=== PATIENT | female | born 1935 | race Caucasian/White ===

== ENCOUNTER 2018-09-23 07:35 | Emergency (ER) | payer MEDICARE, OTHER ==
[2018-09-23 07:54] VITALS: BMI 28.3
--- NOTE | 2018-09-23 09:00 | C.PDOC ---
History Of Present Illness 82 year old female, whose past medical history includes CVA, Dementia and Anxiety, is brought to the ED by ambulance after being referred by her grandson for evaluation of bizarre behavior and anxiety. Patient is complaining of left arm pain, and states that the devil is pulling on her left arm. Patient denies suicidal/homicidal ideation at this time. Additional history limited secondary to patient being a poor historian. Time Seen by Provider: 09/23/18 07:53 Chief Complaint (Nursing): Upper Extremity Problem/Injury History Per: Patient, EMS, Family History/Exam Limitations: other (poor historian ) Onset/Duration Of Symptoms: Hrs Current Symptoms Are (Timing): Still Present Quality: "Pain" Additional History Per: Patient Past Medical History Reviewed: Historical Data, Nursing Documentation, Vital Signs Vital Signs: Last Vital Signs Temp 98 F 09/23/18 07:52 Pulse 83 09/23/18 07:52 Resp 17 09/23/18 07:52 BP 180/83 H 09/23/18 07:52 Pulse Ox 99 09/23/18 07:52 - Medical History PMH: Anxiety, HTN, Hyperlipidemia Surgical History: No Surg Hx Family History: States: Unknown Family Hx - Social History Hx Alcohol Use: No Hx Substance Use: No - Immunization History Hx Tetanus Toxoid Vaccination: (UNKNOWN) Hx Influenza Vaccination: (UNKNOWN) Hx Pneumococcal Vaccination: (UNKNOWN) Review Of Systems Musculoskeletal: Positive for: Arm Pain (left) Psych: Negative for: Suicidal ideation Physical Exam - Physical Exam Appears: Non-toxic, No Acute Distress Skin: Normal Color, Warm, Dry Head: Atraumatic, Normacephalic Eye(s): bilateral: Normal Inspection Neck: Supple Chest: Symmetrical, No Deformity, No Tenderness Cardiovascular: Rhythm Regular, No Murmur Respiratory: Normal Breath Sounds, No Rales, No Rhonchi, No Wheezing Extremity: Normal ROM (left upper extremity (shoulder and arm )), No Tenderness, Capillary Refill (less than 2 seconds ), No Deformity, No Swelling ED Course And Treatment - Laboratory Results Result Diagrams: 09/23/18 09:54 09/23/18 09:54 Lab Interpretation: Abnormal (+ mild elev) ECG: Interpreted By Me ECG Rhythm: Sinus Rhythm ECG Interpretation: Normal Rate From EC O2 Sat by Pulse Oximetry: 99 (on RA) Pulse Ox Interpretation: Normal - Radiology CXR: Interpreted by Me, Read By Radiologist (no active pulmonary disease) CXR Interpretation: Yes: No Acute Disease, Other (poor inspiration) - Other Rad left shoulder XR X-Ray: Read By Radiologist Interpretation: IMPRESSION: No acute displaced fracture or dislocation. Progress Note: Bloodwork, urinalysis, CXR, EKG, Left shoulder XR ordered and reviewed. Klonopin PO and Motrin PO given. Symptoms improved with Klonopin PO Reevaluation Time: 08:58 (re-eval L shoulder benign. h/o RIGHT glenoid fx) Reassessment Condition: Improved Medical Decision Making Medical Decision Making: acute on chronic anxiety no obvious pain ? favoring L shoulder but with normal x-ray and L shoulder exam Dementia/Anxiety? prior stroke baseline per brother who picked up pt. Disposition Doctor Will See Patient In The: Office Counseled Patient/Family Regarding: Studies Performed, Diagnosis - Disposition Referrals: [facility] [Outside] [facility] [Outside] [facility] [Outside] [facility] [Outside] Disposition: HOME/ ROUTINE Disposition Time: 08:59 Condition: GOOD Additional Instructions: continue motrin as needed for shoulder discomfort x-ray normal D or [facility] for anxiety/dementia issues. Instructions: Anxiety, Adult (DC), Dementia (DC), Shoulder Pain (DC) Forms: [employer] (Nepali) - Clinical Impression Clinical Impression: Dementia, Anxiety, Left shoulder pain - Scribe Statement The provider has reviewed the documentation as recorded by the Scribe (Hiral Ceja) Provider Attestation: All medical record entries made by the Scribe were at my direction and personally dictated by me. I have reviewed the chart and agree that the record accurately reflects my personal performance of the history, physical exam, medical decision making, and the department course for this patient. I have also personally directed, reviewed, and agree with the discharge instructions and disposition.
[2018-09-23 10:09] VITALS: RESP 18
[2018-09-23 10:12] LABS: ALB/GLOB RATIO 1.4 (1.0-2.1); ALBUMIN 4.4 g/dL (3.5-5.0); ALT/SGPT 13 U/L (9-52); AST/SGOT 21 U/L (14-36); BASO # 0.1 K/uL (0.0-0.2); BASO % 0.6 % (0.0-2.0); BLOOD UREA NITROGEN 14 mg/dL (7-17); CALCIUM 9.6 mg/dl (8.6-10.4); EOS # 0.1 K/uL (0.0-0.7); EOS % 0.5 % (0.0-4.0); GFR NON-AFRICAN AMERICAN 53; HEMOGLOBIN 14.2 g/dL (11.0-16.0); LYMPH # 1.4 K/uL (1.0-4.3); LYMPH % 11.6 % (20.0-40.0); MEAN CORPUSCULAR HEMOGLOBIN 29.8 pg (27.0-31.0); MEAN CORPUSCULAR HGB CONC 33.7 g/dL (33.0-37.0); MEAN PLATELET VOLUME 7.9 fL (7.2-11.7); MONO # 0.8 K/uL (0.0-0.8); MONO % 6.6 % (0.0-10.0); NEUT # 9.5 K/uL (1.8-7.0); NEUT % 80.7 % (50.0-75.0); NRBC % 0.1 % (0.0-2.0); RBC 4.75 Mil/uL (3.80-5.20); RED CELL DISTRIBUTION WIDTH 14.3 % (11.5-14.5); WHITE BLOOD COUNT 11.8 K/uL (4.8-10.8)
[2018-09-23 10:16] LABS: MEAN CELL VOLUME 88.6 fL (81.0-99.0)
--- NOTE | 2018-09-23 10:25 | RAD ---
Date of service: 09/23/2018 PROCEDURE: CHEST RADIOGRAPH, 1 VIEW HISTORY: SOB COMPARISON: None available. FINDINGS: LUNGS: The lungs are well inflated and clear. There is subsegmental atelectasis in the lower lobes. PLEURA: No pneumothorax or pleural effusion. CARDIOVASCULAR: The heart is normal in size. No aortic atherosclerotic calcifications present. OSSEOUS STRUCTURES: Within normal limits for the patient's age. VISUALIZED UPPER ABDOMEN: Normal. OTHER FINDINGS: None. IMPRESSION: No active pulmonary disease.
[2018-09-23 11:33] VITALS: BP 162/76; PULSE 84; TEMP 98.3
[2018-09-23 11:36] VITALS: O2SAT 99
--- NOTE | 2018-09-23 11:43 | RAD ---
Date of service: 09/23/2018 PROCEDURE: Radiographs of the left shoulder > HISTORY: ? injury COMPARISON: 06/26/2016 FINDINGS: BONES: Bone alignment is normal. There is diffuse bone demineralization. There is no acute displaced fracture or bone destruction. JOINTS: The glenohumeral and acromioclavicular joints are preserved. There is mild degenerative osteoarthrosis in the acromioclavicular joint. SOFT TISSUES: Normal. OTHER FINDINGS: None. IMPRESSION: No acute displaced fracture or dislocation.
--- NOTE | 2018-09-25 13:25 | CARD ---
APPROVED REPORT Date of service: 09/23/2018 EKG Measurement Heart [id number] <Conclusion> Normal sinus rhythm Moderate voltage criteria for LVH, may be normal variant Cannot rule out Septal infarct, age undetermined Abnormal ECG
== END 2018-09-23 11:34 | disposition home or self-care (01) ==
LOC: C.ER 07:35
DX: F03.90 Unspecified dementia, unspecified severity, without behavioral disturbance, psychotic disturbance, mood disturbance, and anxiety (principal); F41.9 Anxiety disorder, unspecified; M25.512 Pain in left shoulder; I10 Essential (primary) hypertension; E78.5 Hyperlipidemia, unspecified

== ENCOUNTER 2018-12-30 14:03 | Observation (INO) | payer MEDICARE, OTHER ==
[2018-12-30 14:04] VITALS: BMI 28.3
[2018-12-30] MEDS ORDERED: Sodium Chloride 0.9% 1,000 ML IV ONE (14:33)
[2018-12-30] MEDS ORDERED: Iohexol 240 (50 ml) PO STA (14:33)
--- NOTE | 2018-12-30 14:35 | C.PDOC ---
History Of Present Illness 83 y/o female, with history of dementia, alzheimer's, and chronic anxiety, is brought in by her brother stating that she has been having pain to her right flank x3 weeks. States that patient has been drinking a lot of water and eating in small amounts. Today, he reports she had an episode of diarrhea but has been having normal bowel movements. He denies fever or chills. He took her to urgent care this morning and had an x-ray done, which he states was fine. Patient was also seen by Dr. Khan, where she had an unknown scan done that showed a 15cm mass, but the brother does not know where or what kind of cancer. He brings her in to ER today for worsening flank pain. Patient has not had any medications for the pain and the brother states he cant handle taking care of her any longer. Time Seen by Provider: 12/30/18 14:24 Chief Complaint (Nursing): Pain, Chronic History Per: Family (Brother) History/Exam Limitations: clinical condition Onset/Duration Of Symptoms: Days Current Symptoms Are (Timing): Still Present Past Medical History Reviewed: Historical Data, Nursing Documentation, Vital Signs Vital Signs: Last Vital Signs Temp 97.9 F 12/30/18 14:16 Pulse 60 12/30/18 14:16 Resp 18 12/30/18 14:16 BP 118/72 12/30/18 14:16 Pulse Ox 98 12/30/18 14:16 - Medical History PMH: Alzheimer's Disease, Anxiety, Dementia, HTN, Hyperlipidemia Family History: States: No Known Family Hx - Social History Hx Alcohol Use: No Hx Substance Use: No - Immunization History Hx Tetanus Toxoid Vaccination: (UNKNOWN) Hx Influenza Vaccination: (UNKNOWN) Hx Pneumococcal Vaccination: (UNKNOWN) Review Of Systems Constitutional: Negative for: Fever, Chills Cardiovascular: Negative for: Chest Pain Respiratory: Negative for: Cough, Shortness of Breath Gastrointestinal: Positive for: Diarrhea, Other (Right flank pain). Negative for: Vomiting Genitourinary: Negative for: Dysuria, Hematuria Physical Exam - Physical Exam Appears: Non-toxic, Other (Uncomfortable, moaning in pain) Skin: Warm, Dry Head: Atraumatic, Normacephalic Eye(s): bilateral: Normal Inspection Oral Mucosa: Dry Neck: Supple Cardiovascular: Rhythm Regular, No Murmur Respiratory: Normal Breath Sounds, No Rales, No Rhonchi, No Wheezing Gastrointestinal/Abdominal: Bowel Sounds (normoactive), Soft, No Tenderness Back: CVA Tenderness (Right-sided) Extremity: Tenderness (Right lateral rib margin tenderness) Extremity: Bilateral: Atraumatic ED Course And Treatment - Laboratory Results Result Diagrams: 12/30/18 15:08 12/30/18 15:08 Lab Interpretation: No Acute Changes O2 Sat by Pulse Oximetry: 98 (RA) Pulse Ox Interpretation: Normal - Radiology CXR: Viewed By Me, Read By Radiologist CXR Interpretation: Yes: No Acute Disease - Other Rad CXR X-Ray: Read By Radiologist Interpretation: FINDINGS: LUNGS: No evidence of new infiltrate or consolidation in the lungs. PLEURA: No pneumothorax or pleural fluid seen. CARDIOVASCULAR: No aortic atherosclerotic calcification present. Normal. OSSEOUS STRUCTURES: No significant abnormalities. VISUALIZED UPPER ABDOMEN: Normal. OTHER FINDINGS: None. IMPRESSION: No active disease. - CT Scan/US Abd/Pel CT Other Rad Studies (CT/US): Read By Radiologist, Radiology Report Reviewed CT/US Interpretation: FINDINGS: LUNG BASES: There are small bilateral pleural effusions with mild consolidation at the lung bases. LIVER: Unremarkable. GALLBLADDER AND BILE DUCTS: Gallbladder is mildly distended. PANCREAS: Unremarkable. SPLEEN: Unremarkable. ADRENAL GLANDS: Unremarkable. KIDNEYS, URETERS, AND BLADDER: The kidneys appear within normal limits. There is no h ydronephrosis or hydroureter. No urinary calculi are seen. STOMACH AND BOWEL: Unremarkable appearance of the stomach and bowel. No evidence of bowel obstruction. No evidence suggesting enteritis or colitis. There are diverticular changes sigmoid and descending colon. There is no diverticular abs cess or mass. There is no significant pericolonic fat stranding. APPENDIX: No evidence of acute appendicitis on CT examination. PERITONEUM: No free fluid. No free air. LYMPH NODES: No lymphadenopathy is evident. REPRODUCTIVE: Unremarkable as visualized. VASCULATURE: Atherosclerotic changes with mildly ectatic distal abdominal aorta approximately 2.4 cm in diameter. BONES: No aggressive appearing osseous lesion. No acute osseous pathology evident. Moderately advanced hypertrophic and degenerative changes lumbar spine. IMPRESSION: Small bilateral pleural effusions. Distended gallbladder. No suspicious abdominal mass lymphadenopathy. Diverticular changes sigmoid and descending colon. Atherosclerotic changes with ectatic distal abdominal aorta. Clinical correlation advised. - Physician Consult Information Outcome Of Conversation: Case discussed with Dr Khan. He requests patient to be admitted on Dr Feng Ceja's service for observation and treatment. Medical Decision Making Medical Decision Making: Plan: --Abd/Pel CT --Labs --Chest XR --UA --Morphine 2 mg IVP --IV fluids --Omnipaque PO Disposition - Disposition Disposition: HOSPITALIZED Disposition Time: 18:55 Condition: STABLE - POA Present On Arrival: None - Clinical Impression Clinical Impression: Dementia, Agitation, UTI (urinary tract infection) - Scribe Statement The provider has reviewed the documentation as recorded by the Scribe Abbi Lepe Provider Attestation: All medical record entries made by the Scribe were at my direction and perso cordelia dictated by me. I have reviewed the chart and agree that the record accurately reflects my personal performance of the history, physical exam, medical decision making, and the department course for this patient. I have also personally directed, reviewed, and agree with the discharge instructions and disposition.
[2018-12-30 15:11] LABS: BASO # 0.1 K/uL (0.0-0.2); BASO % 1.3 % (0.0-2.0); EOS # 0.3 K/uL (0.0-0.7); EOS % 5.5 % (0.0-4.0); LYMPH # 1.6 K/uL (1.0-4.3); LYMPH % 27.9 % (20.0-40.0); MEAN CORPUSCULAR HEMOGLOBIN 31.1 pg (27.0-31.0); MEAN PLATELET VOLUME 7.4 fL (7.2-11.7); MONO # 0.8 K/uL (0.0-0.8); MONO % 13.8 % (0.0-10.0); NEUT # 2.9 K/uL (1.8-7.0); NEUT % 51.5 % (50.0-75.0); NRBC % 0.1 % (0.0-2.0); RBC 3.77 Mil/uL (3.80-5.20); RED CELL DISTRIBUTION WIDTH 15.2 % (11.5-14.5)
[2018-12-30] MEDS ORDERED: Iohexol 240 (50 ml) ONE (15:11)
[2018-12-30] MEDS ORDERED: Sodium Chloride 0.9% 1,000 ML ONE (15:11)
[2018-12-30 15:16] LABS: HEMOGLOBIN 11.7 g/dL (11.0-16.0); MEAN CELL VOLUME 91.4 fL (81.0-99.0); WHITE BLOOD COUNT 5.6 K/uL (4.8-10.8)
[2018-12-30 15:23] LABS: ALB/GLOB RATIO 1.5 (1.0-2.1); ALBUMIN 3.6 g/dL (3.5-5.0); ALT/SGPT 13 U/L (9-52); AST/SGOT 15 U/L (14-36); BLOOD UREA NITROGEN 9 mg/dL (7-17); GFR NON-AFRICAN AMERICAN 60
--- NOTE | 2018-12-30 15:34 | RAD ---
Date of service: 12/30/2018 PROCEDURE: CHEST RADIOGRAPH, 1 VIEW HISTORY: SOB COMPARISON: Comparison is made with 09/23/2018 FINDINGS: LUNGS: No evidence of new infiltrate or consolidation in the lungs. PLEURA: No pneumothorax or pleural fluid seen. CARDIOVASCULAR: No aortic atherosclerotic calcification present. Normal. OSSEOUS STRUCTURES: No significant abnormalities. VISUALIZED UPPER ABDOMEN: Normal. OTHER FINDINGS: None. IMPRESSION: No active disease.
[2018-12-30] MEDS ORDERED: Iodixanol 320 mg/ml 150 ml Bottle IV ONE (17:14)
[2018-12-30 17:17] LABS: SQUAMOUS EPITHIAL 7 /hpf (0-5); URINE BACTERIA RARE (<OCC); URINE BILIRUBIN NEGATIVE (NEGATIVE); URINE BLOOD 1+ (NEGATIVE); URINE CALCIUM OXALATE CRYSTALS OCC /hpf (<OCC); URINE CLARITY Hazy (Clear); URINE COLOR Yellow (YELLOW); URINE GLUCOSE (UA) NORMAL (Normal); URINE LEUKOCYTE ESTERASE 3+ Leu/uL (Negative); URINE PROTEIN NEGATIVE (NEGATIVE); URINE UROBILINOGEN NORMAL mg/dL (0.2-1.0)
--- NOTE | 2018-12-30 21:54 | CP.PCM.HP ---
Past Patient History - Infectious Disease Hx of Infectious Diseases: None - Past Social History Smoking Status: Never Smoked - CARDIAC Hx Hypertension: Yes - NEUROLOGICAL Hx Alzheimer's Disease: Yes Hx Dementia: Yes - HEMATOLOGICAL/ONCOLOGICAL Hx Cancer: Yes (cevix? mets?) - PSYCHIATRIC Hx Anxiety: Yes Hx Substance Use: No - SURGICAL HISTORY Hx Surgeries: Yes Hx Section: Yes - ANESTHESIA Hx Anesthesia: Yes Hx Anesthesia Reactions: No Meds Allergies/Adverse Reactions: Allergies Allergy/AdvReac Type Severity Reaction Status Date / Time codeine Allergy Intermediate Verified 12/30/18 14:19 Physical Exam - Constitutional Appears: Well - Head Exam Head Exam: ATRAUMATIC, NORMAL INSPECTION, NORMOCEPHALIC - Eye Exam Eye Exam: EOMI, Normal appearance, PERRL Pupil Exam: NORMAL ACCOMODATION, PERRL - ENT Exam ENT Exam: Mucous Membranes Moist, Normal Exam - Neck Exam Neck exam: Positive for: Normal Inspection - Respiratory Exam Respiratory Exam: Decreased Breath Sounds - Cardiovascular Exam Cardiovascular Exam: REGULAR RHYTHM, +S1, +S2 - GI/Abdominal Exam GI & Abdominal Exam: Diminished Bowel Sounds, Soft - Rectal Exam Rectal Exam: Deferred - Neurological Exam Neurological exam: Oriented x3 Results - Vital Signs Recent Vital Signs: Last Vital Signs Temp 97.9 F 12/30/18 14:16 Pulse 61 12/30/18 15:16 Resp 16 12/30/18 15:16 BP 136/70 12/30/18 15:16 Pulse Ox 98 12/30/18 18:57 - Labs Result Diagrams: 12/30/18 15:08 12/30/18 15:08 Labs: Laboratory Results - last 24 hr 12/30/18 12/30/18 12/30/18 15:08 15:08 17:08 WBC 5.6 D RBC 3.77 L Hgb 11.7 D Hct 34.4 MCV 91.4 D MCH 31.1 H MCHC 34.0 RDW 15.2 H Plt Count 227 MPV 7.4 Neut % (Auto) 51.5 Lymph % (Auto) 27.9 [place] % (Auto) 13.8 H Eos % (Auto) 5.5 H Baso % (Auto) 1.3 Neut # (Auto) 2.9 Lymph # (Auto) 1.6 [place] # (Auto) 0.8 Eos # (Auto) 0.3 Baso # (Auto) 0.1 Sodium 139 Potassium 4.0 Chloride 106 Carbon Dioxide 24 Anion Gap 12 BUN 9 Creatinine 0.9 Est GFR ( Amer) > 60 Est GFR (Non-Af Amer) 60 Random Glucose 117 H Calcium 9.0 Total Bilirubin 0.5 AST 15 ALT 13 Alkaline Phosphatase 56 Total Protein 6.1 L Albumin 3.6 Globulin 2.5 Albumin/Globulin Ratio 1.5 Urine Color Yellow Urine Clarity Hazy Urine pH 6.0 Ur Specific [place] 1.009 Urine Protein Negative Urine Glucose (UA) Normal Urine Ketones Negative Urine Blood 1+ H Urine Nitrate Negative Urine Bilirubin Negative Urine Urobilinogen Normal Ur Leukocyte Esterase 3+ H Urine WBC (Auto) 16 H Urine RBC (Auto) 3 Ur Squamous Epith Cells 7 H Calcium Oxalate Crystal Occ H Urine Bacteria Rare
--- NOTE | 2018-12-30 22:29 | CT ---
Date of service: 12/30/2018 PROCEDURE: CT Abdomen and Pelvis with contrast HISTORY: pain COMPARISON: None. TECHNIQUE: Contrast dose: 100 mL of Visipaque 320 intravenously. Axial and reformatted coronal and sagittal CT images of abdomen and pelvis were obtained after IV and oral contrast administration Radiation dose: Total exam DLP = 738.45 mGy-cm. This CT exam was performed using one or more of the following dose reduction techniques: Automated exposure control, adjustment of the mA and/or kV according to patient size, and/or use of iterative reconstruction technique. FINDINGS: LOWER THORAX: Small left and trace right pleural effusion noted. The heart is mildly enlarged. Chronic lung changes and prominent interstitial markings are noted at the lung bases. Focal airspace consolidation seen at the anterior aspect of the left lung base. LIVER: Unremarkable. No gross lesion or ductal dilatation. GALLBLADDER AND BILE DUCTS: The gallbladder is mildly distended without CT evidence of acute cholecystitis. PANCREAS: Unremarkable. No gross lesion or ductal dilatation. SPLEEN: Unremarkable. ADRENALS: Unremarkable. No mass. KIDNEYS AND URETERS: Unremarkable. No hydronephrosis. No solid mass. VASCULATURE: Unremarkable. No aortic aneurysm. Diffuse atherosclerotic disease and foci of mural thickening noted in the abdominal aorta and iliac arteries. BOWEL: There are diffuse large diverticulosis seen in large bowel without definite evidence of diverticulitis. No evidence of high-grade bowel obstruction APPENDIX: No evidence of acute appendicitis. PERITONEUM: Unremarkable. No free fluid. No free air. LYMPH NODES: Unremarkable. No enlarged lymph nodes. BLADDER: Mild urinary bladder wall thickening noted. REPRODUCTIVE: There is moderate enlargement of the uterine cervix and lower uterine segment noted. Further evaluation of the uterus by ultrasound is suggested. The uterus is mildly enlarged. BONES: No acute fracture. OTHER FINDINGS: None. IMPRESSION: Moderate enlargement of the lower uterine segment and the uterine cervix. The possibility of neoplasm should be excluded. Further evaluation by ultrasound is suggested. Small left and trace right pleural effusions. Colonic diverticulosis without evidence of diverticulitis. Mildly distended gallbladder without evidence of acute cholecystitis. Mild urinary bladder wall thickening. Preliminary report was submitted by [facility]
--- NOTE | 2018-12-31 06:23 | CT ---
Date of service: 12/30/2018 PROCEDURE: CT HEAD WITHOUT CONTRAST. HISTORY: dementia, agitation COMPARISON: None available. TECHNIQUE: Axial computed tomography images were obtained through the head/brain without intravenous contrast. Radiation dose: Total exam DLP = 986.43 mGy-cm. This CT exam was performed using one or more of the following dose reduction techniques: Automated exposure control, adjustment of the mA and/or kV according to patient size, and/or use of iterative reconstruction technique. FINDINGS: HEMORRHAGE: No intracranial hemorrhage. BRAIN: No mass effect or edema. Ciys-sn-[id number] atrophy. Moderate to extensive white matter changes likely represent chronic microvascular ischemic disease. VENTRICLES: Unremarkable. No hydrocephalus. CALVARIUM: Unremarkable. PARANASAL SINUSES: Unremarkable as visualized. No significant inflammatory changes. MASTOID AIR CELLS: Unremarkable as visualized. No inflammatory changes. OTHER FINDINGS: None. IMPRESSION: No evidence of acute intracranial hemorrhage intracranial collection mass effect or midline shift. Volume loss and white matter changes likely represent chronic microvascular ischemic disease. Preliminary report was submitted by [facility]iology contains concordant findings.
[2018-12-31] MEDS: Pantoprazole 40 mg EC Tab PO SCH (09:39)
[2018-12-31] MEDS: Enoxaparin 40 mg Syringe SC SCH (09:40)
--- NOTE | 2018-12-31 10:08 | CP.PCM.PN ---
Subjective - Date & Time of Evaluation Date of Evaluation: 12/31/18 - Subjective Subjective: Patient seen and examined today No nausea No vomiting No fever No diarrhea No dizziness No shortness of breath Objective - Vital Signs/Intake and Output Vital Signs (last 24 hours): Temp Pulse Resp BP Pulse Ox 97.6 F 71 20 149/79 100 12/31/18 07:00 12/31/18 07:00 12/31/18 07:00 12/31/18 07:00 12/31/18 07:00 - Medications Medications: Current Medications Amlodipine Besylate (Norvasc) 5 mg PO DAILY [facility] Last Admin: 12/31/18 09:39 Dose: 5 mg Clopidogrel Bisulfate (Plavix) 75 mg PO DAILY [facility] Last Admin: 12/31/18 09:39 Dose: 75 mg Donepezil HCl (Aricept) 5 mg PO [facility] Enoxaparin Sodium (Lovenox) 40 mg SC DAILY [facility] Last Admin: 12/31/18 09:40 Dose: 40 mg Escitalopram Oxalate (Lexapro) 5 mg PO DAILY [facility] Last Admin: 12/31/18 09:43 Dose: Not Given Cefepime HCl 1 gm/ Dextrose 50 mls @ 100 mls/hr IVPB Q12H [facility]; Protocol Last Admin: 12/31/18 01:09 Dose: 100 mls/hr Pantoprazole Sodium (Protonix Ec Tab) 40 mg PO DAILY [facility] Last Admin: 12/31/18 09:39 Dose: 40 mg Pneumococcal Polyvalent Vaccine (Pneumovax 23 Vaccine) 0.5 ml IM .ONCE ONE Stop: 01/01/19 10:01 Rosuvastatin Calcium (Crestor) 5 mg PO [facility] Last Admin: 12/31/18 09:36 Dose: Not Given - Labs Labs: 12/30/18 15:08 12/30/18 15:08 - Constitutional Appears: Well - Head Exam Head Exam: ATRAUMATIC, NORMAL INSPECTION, NORMOCEPHALIC - Eye Exam Eye Exam: EOMI, Normal appearance, PERRL Pupil Exam: NORMAL ACCOMODATION, PERRL - ENT Exam ENT Exam: Mucous Membranes Moist, Normal Exam - Neck Exam Neck Exam: Full ROM, Normal Inspection. absent: Lymphadenopathy - Respiratory Exam Respiratory Exam: Decreased Breath Sounds - Cardiovascular Exam Cardiovascular Exam: REGULAR RHYTHM, +S1, +S2 - GI/Abdominal Exam GI & Abdominal Exam: Soft, Diminished Bowel Sounds - Rectal Exam Rectal Exam: Deferred - Neurological Exam Neurological Exam: Oriented x3 Assessment and Plan - Assessment and Plan (Free Text) Plan: medications reviewed labs reivewed vitals reviewed aricept cefepime crestor lexapro lovenox norvasc plavix protonix ec tabs
[2019-01-01] MEDS ORDERED: Pneumococcal 23-Valent Vaccine IM ONE (10:00)
[2019-01-01] MEDS: Pantoprazole 40 mg EC Tab PO SCH (10:38)
[2019-01-01] MEDS: Enoxaparin 40 mg Syringe SC SCH (10:39)
[2019-01-01 11:22] LABS: HEMOGLOBIN 12.8 g/dL (11.0-16.0); MEAN CELL VOLUME 90.2 fL (81.0-99.0); MEAN CORPUSCULAR HEMOGLOBIN 31.5 pg (27.0-31.0); MEAN CORPUSCULAR HGB CONC 34.9 g/dL (33.0-37.0); MEAN PLATELET VOLUME 7.6 fL (7.2-11.7); RBC 4.05 Mil/uL (3.80-5.20); RED CELL DISTRIBUTION WIDTH 15.8 % (11.5-14.5); WHITE BLOOD COUNT 4.4 K/uL (4.8-10.8)
[2019-01-01 11:42] LABS: ALB/GLOB RATIO 1.6 (1.0-2.1); ALBUMIN 4.1 g/dL (3.5-5.0); CALCIUM 9.4 mg/dl (8.6-10.4)
[2019-01-01] MEDS ORDERED: Potassium Chloride 20 mEq/15 ml LIQ UD PO ONE (12:45)
--- NOTE | 2019-01-01 13:41 | CP.PCM.PN ---
Subjective - Date & Time of Evaluation Date of Evaluation: 01/01/19 - Subjective Subjective: Patient seen and examined today No nausea No vomiting No fever No diarrhea No dizziness No shortness of breath Objective - Vital Signs/Intake and Output Vital Signs (last 24 hours): Temp Pulse Resp BP Pulse Ox 97.8 F 69 20 121/74 98 01/01/19 07:00 01/01/19 07:00 01/01/19 07:00 01/01/19 07:00 01/01/19 07:00 - Medications Medications: Current Medications Acetaminophen (Tylenol 325mg Tab) 650 mg PO Q6 PRN PRN Reason: Other Last Admin: 01/01/19 10:38 Dose: 650 mg Amlodipine Besylate (Norvasc) 5 mg PO DAILY [facility] Last Admin: 01/01/19 10:38 Dose: 5 mg Clopidogrel Bisulfate (Plavix) 75 mg PO DAILY [facility] Last Admin: 01/01/19 10:38 Dose: 75 mg Donepezil HCl (Aricept) 5 mg PO [facility] Last Admin: 12/31/18 21:37 Dose: 5 mg Enoxaparin Sodium (Lovenox) 40 mg SC DAILY [facility] Last Admin: 01/01/19 10:39 Dose: Not Given Escitalopram Oxalate (Lexapro) 5 mg PO DAILY [facility] Last Admin: 01/01/19 10:39 Dose: 5 mg Cefepime HCl 1 gm/ Dextrose 50 mls @ 100 mls/hr IVPB Q12H [facility]; Protocol Last Admin: 01/01/19 12:03 Dose: 100 mls/hr Pantoprazole Sodium (Protonix Ec Tab) 40 mg PO DAILY [facility] Last Admin: 01/01/19 10:38 Dose: 40 mg Rosuvastatin Calcium (Crestor) 5 mg PO [facility] Last Admin: 12/31/18 21:38 Dose: 5 mg - Labs Labs: 01/01/19 11:15 01/01/19 11:15 - Constitutional Appears: Well - Head Exam Head Exam: ATRAUMATIC, NORMAL INSPECTION, NORMOCEPHALIC - Eye Exam Eye Exam: EOMI, Normal appearance, PERRL Pupil Exam: NORMAL ACCOMODATION, PERRL - ENT Exam ENT Exam: Mucous Membranes Moist, Normal Exam - Neck Exam Neck Exam: Full ROM, Normal Inspection. absent: Lymphadenopathy - Respiratory Exam Respiratory Exam: Decreased Breath Sounds - Cardiovascular Exam Cardiovascular Exam: REGULAR RHYTHM, +S1, +S2 - GI/Abdominal Exam GI & Abdominal Exam: Soft, Diminished Bowel Sounds - Rectal Exam Rectal Exam: Deferred - Neurological Exam Neurological Exam: Oriented x3 Assessment and Plan - Assessment and Plan (Free Text) Plan: vitals reviewed labs reviewed medications reviewed
[2019-01-01] MEDS ORDERED: Potassium Chloride 20 mEq ER Tab PO STA (21:32)
[2019-01-02 07:16] LABS: BASO % 0.4 % (0.0-2.0); EOS # 0.2 K/uL (0.0-0.7); EOS % 4.3 % (0.0-4.0); LYMPH # 1.3 K/uL (1.0-4.3); LYMPH % 26.8 % (20.0-40.0); MEAN CELL VOLUME 90.3 fL (81.0-99.0); MEAN CORPUSCULAR HEMOGLOBIN 31.3 pg (27.0-31.0); MEAN CORPUSCULAR HGB CONC 34.6 g/dL (33.0-37.0); MEAN PLATELET VOLUME 7.5 fL (7.2-11.7); MONO # 0.5 K/uL (0.0-0.8); MONO % 11.1 % (0.0-10.0); NEUT # 2.8 K/uL (1.8-7.0); NEUT % 57.4 % (50.0-75.0); NRBC % 0.1 % (0.0-2.0); RBC 4.16 Mil/uL (3.80-5.20); RED CELL DISTRIBUTION WIDTH 15.9 % (11.5-14.5); WHITE BLOOD COUNT 4.8 K/uL (4.8-10.8)
[2019-01-02 07:49] LABS: ALB/GLOB RATIO 1.8 (1.0-2.1); ALBUMIN 4.4 g/dL (3.5-5.0); ALT/SGPT < 6 U/L (9-52); AST/SGOT 22 U/L (14-36); BLOOD UREA NITROGEN 14 mg/dL (7-17); CALCIUM 9.9 mg/dl (8.6-10.4); GFR NON-AFRICAN AMERICAN 47
[2019-01-02] MEDS: Pantoprazole 40 mg EC Tab PO SCH ×2 (10:56→11:23)
[2019-01-02] MEDS: Enoxaparin 40 mg Syringe SC SCH (10:57)
--- NOTE | 2019-01-02 12:56 | CP.PCM.PN ---
Subjective - Date & Time of Evaluation Date of Evaluation: 01/02/19 Time of Evaluation: 12:55 - Subjective Subjective: PATIENT SEEN AND EXAMINED AT BEDSIDE Objective - Vital Signs/Intake and Output Vital Signs (last 24 hours): Temp Pulse Resp BP Pulse Ox 98.1 F 122 H 20 149/86 97 01/02/19 08:53 01/02/19 10:54 01/02/19 08:53 01/02/19 10:54 01/02/19 11:51 - Medications Medications: Current Medications Acetaminophen (Tylenol 325mg Tab) 650 mg PO Q6 PRN PRN Reason: Other Last Admin: 01/01/19 10:38 Dose: 650 mg Amlodipine Besylate (Norvasc) 5 mg PO DAILY [facility] Last Admin: 01/02/19 11:22 Dose: Not Given Clopidogrel Bisulfate (Plavix) 75 mg PO DAILY [facility] Last Admin: 01/02/19 11:23 Dose: Not Given Donepezil HCl (Aricept) 5 mg PO [facility] Last Admin: 01/01/19 21:35 Dose: 5 mg Enoxaparin Sodium (Lovenox) 40 mg SC DAILY [facility] Last Admin: 01/02/19 10:57 Dose: Not Given Escitalopram Oxalate (Lexapro) 5 mg PO DAILY [facility] Last Admin: 01/02/19 11:22 Dose: Not Given Cefepime HCl 1 gm/ Dextrose 50 mls @ 100 mls/hr IVPB Q12H [facility]; Protocol Last Admin: 01/02/19 12:13 Dose: 100 mls/hr Pantoprazole Sodium (Protonix Ec Tab) 40 mg PO DAILY [facility] Last Admin: 01/02/19 11:23 Dose: Not Given Rosuvastatin Calcium (Crestor) 5 mg PO [facility] Last Admin: 01/01/19 21:36 Dose: 5 mg - Labs Labs: 01/02/19 07:07 01/02/19 07:07 Assessment and Plan - Assessment and Plan (Free Text) Assessment: FOLLOW UP WITH DR Debbi HOUGH IN HIS OFFICE ------CALL FOR APPOINTMENT CONTINUE HOME MEDICATION NEW PRESCRIPTION GIVNE AUGMENTIN PO BID FOR 7 DAYS BACID PO BID FOR 7 DAYS ACTIVITY TOLERATED CALL DR Debbi HOUGH OR GO TO THE EMERGENCY ROOM IF SYMPTOM RETURN OR WORSENING
[2019-01-03 04:03] VITALS: O2SAT 96
[2019-01-03] MEDS: Enoxaparin 40 mg Syringe SC SCH (09:13)
[2019-01-03] MEDS: Pantoprazole 40 mg EC Tab PO SCH (09:13)
[2019-01-03 11:20] VITALS: BP 158/72; PULSE 86; RESP 20; TEMP 97.9
--- NOTE | 2019-01-03 18:11 | CP.PCM.DIS ---
Provider - Provider Date of Admission: 12/30/18 18:54 Attending physician: Kinsey Hough MD Consults: 01/02/19 10:45 Psychiatry Consult Routine Comment: Consulting Provider: Carrie Coley Consulting Physician: Carrie Coley Reason for Consult: anxiety Time Spent in preparation of Discharge (in minutes): 20 Hospital Course - Lab Results Lab Results: Micro Results 12/30/18 17:54 Urine,Clean Catch Urine Culture - Final MULTIPLE SPECIES. SUGGEST REPEAT SPECIMEN. Most Recent Lab Values WBC 4.8 K/uL (4.8-10.8) 01/02/19 07:07 RBC 4.16 Mil/uL (3.80-5.20) 01/02/19 07:07 Hgb 13.0 g/dL (11.0-16.0) 01/02/19 07:07 Hct 37.6 % (34.0-47.0) 01/02/19 07:07 MCV 90.3 fL (81.0-99.0) 01/02/19 07:07 MCH 31.3 pg (27.0-31.0) H 01/02/19 07:07 MCHC 34.6 g/dL (33.0-37.0) 01/02/19 07:07 RDW 15.9 % (11.5-14.5) H 01/02/19 07:07 Plt Count 247 K/uL (130-400) 01/02/19 07:07 MPV 7.5 fL (7.2-11.7) 01/02/19 07:07 Neut % (Auto) 57.4 % (50.0-75.0) 01/02/19 07:07 Lymph % (Auto) 26.8 % (20.0-40.0) 01/02/19 07:07 [place] % (Auto) 11.1 % (0.0-10.0) H 01/02/19 07:07 Eos % (Auto) 4.3 % (0.0-4.0) H 01/02/19 07:07 Baso % (Auto) 0.4 % (0.0-2.0) 01/02/19 07:07 Neut # (Auto) 2.8 K/uL (1.8-7.0) 01/02/19 07:07 Lymph # (Auto) 1.3 K/uL (1.0-4.3) 01/02/19 07:07 [place] # (Auto) 0.5 K/uL (0.0-0.8) 01/02/19 07:07 Eos # (Auto) 0.2 K/uL (0.0-0.7) 01/02/19 07:07 Baso # (Auto) 0.0 K/uL (0.0-0.2) 01/02/19 07:07 Sodium 138 mmol/L (132-148) 01/02/19 07:07 Potassium 4.4 mmol/L (3.6-5.2) 01/02/19 07:07 Chloride 108 mmol/L (98-107) H 01/02/19 07:07 Carbon Dioxide 25 mmol/L (22-30) 01/02/19 07:07 Anion Gap 9 (10-20) L 01/02/19 07:07 BUN 14 mg/dL (7-17) 01/02/19 07:07 Creatinine 1.1 mg/dL (0.7-1.2) 01/02/19 07:07 Est GFR ( Amer) 57 01/02/19 07:07 Est GFR (Non-Af Amer) 47 01/02/19 07:07 POC Glucose (mg/dL) 129 mg/dL (65-110) H 12/31/18 21:06 Random Glucose 103 mg/dL (65-105) D 01/02/19 07:07 Calcium 9.9 mg/dl (8.6-10.4) 01/02/19 07:07 Total Bilirubin 0.8 mg/dL (0.2-1.3) 01/02/19 07:07 AST 22 U/L (14-36) 01/02/19 07:07 ALT < 6 U/L (9-52) L 01/02/19 07:07 Alkaline Phosphatase 59 U/L (38-126) 01/02/19 07:07 Total Protein 6.9 g/dL (6.3-8.3) 01/02/19 07:07 Albumin 4.4 g/dL (3.5-5.0) 01/02/19 07:07 Globulin 2.4 gm/dL (2.2-3.9) 01/02/19 07:07 Albumin/Globulin Ratio 1.8 (1.0-2.1) 01/02/19 07:07 Urine Color Yellow (YELLOW) 12/30/18 17:08 Urine Clarity Hazy (Clear) 12/30/18 17:08 Urine pH 6.0 (5.0-8.0) 12/30/18 17:08 Ur Specific [place] 1.009 (1.003-1.030) 12/30/18 17:08 Urine Protein Negative mg/dL (NEGATIVE) 12/30/18 17:08 Urine Glucose (UA) Normal mg/dL (Normal) 12/30/18 17:08 Urine Ketones Negative mg/dL (NEGATIVE) 12/30/18 17:08 Urine Blood 1+ (NEGATIVE) H 12/30/18 17:08 Urine Nitrate Negative (NEGATIVE) 12/30/18 17:08 Urine Bilirubin Negative (NEGATIVE) 12/30/18 17:08 Urine Urobilinogen Normal mg/dL (0.2-1.0) 12/30/18 17:08 Ur Leukocyte Esterase 3+ Porsha/uL (Negative) H 12/30/18 17:08 Urine WBC (Auto) 16 /hpf (0-5) H 12/30/18 17:08 Urine RBC (Auto) 3 /hpf (0-3) 12/30/18 17:08 Ur Squamous Epith Cells 7 /hpf (0-5) H 12/30/18 17:08 Calcium Oxalate Crystal Occ /hpf (<OCC) H 12/30/18 17:08 Urine Bacteria Rare (<OCC) 12/30/18 17:08 Discharge Exam - Head Exam Head Exam: ATRAUMATIC, NORMAL INSPECTION, NORMOCEPHALIC Discharge Plan - Discharge Medications Prescriptions: Amoxicillin/Clavulanate [Augmentin 875 MG-125 MG] 1 tab PO BID 7 Days tab Lactobacillus Acidophilus [Bacid Acidophilus] 1 cap PO BID 7 Days cap - Follow Up Plan Condition: STABLE Disposition: HOME/ ROUTINE Instructions: Dementia (DC), Amoxicillin and Clavulanate, Urinary Tract Infection in Women (DC) Additional Instructions: FOLLOW UP WITH DR Debbi HOUGH IN HIS OFFICE ------CALL FOR APPOINTMENT CONTINUE HOME MEDICATION NEW PRESCRIPTION GIVNE AUGMENTIN PO BID FOR 7 DAYS BACID PO BID FOR 7 DAYS ACTIVITY TOLERATED CALL DR Debbi HOUGH OR GO TO THE EMERGENCY ROOM IF SYMPTOM RETURN OR WORSENING Referrals: Lupis Hough MD [Staff Provider] -
== END 2019-01-03 12:15 | disposition home or self-care (01) ==
LOC: C.ER 14:03 → C.9E 18:54 → C.5S 23:04
PROVIDERS: ADMIT Internal Medicine Nephrology; ATTEND Internal Medicine Nephrology
DX: N39.0 Urinary tract infection, site not specified (principal); I10 Essential (primary) hypertension; G30.9 Alzheimer's disease, unspecified; F02.80 Dementia in other diseases classified elsewhere, unspecified severity, without behavioral disturbance, psychotic disturbance, mood disturbance, and anxiety; E78.5 Hyperlipidemia, unspecified
CPT/HCPCS: 36415; 70450; 71045; 74177; 80053; 81001; 82948; 85025; 85027; 87086; 96360; 96374; 97116; 97162; 97530; 99285; G0378; G8978; G8979; J0692; J1650; J2060; J2270; J7030; Q9966; Q9967